=== PATIENT | female | born 1945 | race Two or more races ===

== ENCOUNTER → 2018-05-13 | Outpatient (CLI) | payer MEDICARE, OTHER ==
[~2018-05-13] MED LIST: ANAS1TAB50 PO; ASPI81 PO; FERR325T22 PO; GLIP10 PO; IBUP-2354 PO; LETR2.5 PO; LINA5TAB PO; LISI-660 PO; METF-960 PO; PIOG15TA6 PO; SIMV-260 PO; VITAD1000 PO
[2018-05-13 10:43] VITALS: BP 129/61
== END | disposition home or self-care (01) ==
LOC: HBOWC 10:02
PROVIDERS: ATTEND Internal Medicine
DX: S91.301D Unspecified open wound, right foot, subsequent encounter (principal); L84 Corns and callosities; E11.9 Type 2 diabetes mellitus without complications; M79.671 Pain in right foot; X58.XXXD Exposure to other specified factors, subsequent encounter
CPT/HCPCS: 11055